=== PATIENT | female | born 2000 | race Caucasian/White ===

== ENCOUNTER 2019-02-23 11:36 | Inpatient (IN) | payer OTHER ==
--- NOTE | 2019-02-23 11:57 | ED ---
Psychiatric Complaint - HPI Summary HPI Summary: Pt is a 19 y/o F presenting to the ED with a chief psychiatric complaint. She states she has been having suicidal thoughts since the beginning of this past summer, and that she has recently been experiencing auditory and visual hallucinations. She states that she sees herself hurting other people, however she has never been violent and does not want to hurt others. She also hears voices speaking to her and sounds that are not there. She had a plan to hang herself this past summer, but became scared and did not follow through. She also notes a headache, back pain, and neck pain that has been persistent over the past three weeks, with associated unbalance. - History Of Current Complaint Chief Complaint: EDSuicidal Time Seen by Provider: 02/23/19 11:52 Accompanied By: alone Hx Obtained From: Patient Onset/Duration: Gradual Onset, Lasting Weeks, Still Present Timing: Weeks Severity Initially: Moderate Severity Currently: Moderate Character: Depressed, Anxious Aggravating Factor(s): Nothing Alleviating Factor(s): Nothing Associated Signs And Symptoms: Positive: Hallucinating Has Suicidal: Reports: Thoughts, With A Plan. Denies: Has Prior Attempt(s) Has Homicidal: Denies: Thoughts - Allergies/Home Medications Allergies/Adverse Reactions: Allergies Allergy/AdvReac Type Severity Reaction Status Date / Time No Known Allergies Allergy Verified 02/23/19 11:48 PMH/Surg Hx/FS Hx/Imm Hx Previously Healthy: Yes Endocrine/Hematology History: Denies: Hx Diabetes Cardiovascular History: Denies: Hx Hypertension Infectious Disease History: No Infectious Disease History: Denies: Traveled Outside the [place] in Last 30 Days - Family History Known Family History: Positive: Other - OCD and manic depression in family - Social History Occupation: Student Hx Substance Use: No Substance Use Type: Reports: None Hx Tobacco Use: No Smoking Status (MU): Never Smoked Tobacco Review of Systems Positive: Myalgia - neck/back pain Neurological: Other - off balance Positive: Headache Positive: Depressed, Other - SI w/ plan. auditory/visual hallucinations. All Other Systems Reviewed And Are Negative: Yes Physical Exam - Summary Physical Exam Summary: Constitutional: Well-developed, Well-nourished, Alert. (-) Distressed Skin: Warm, Dry HENT: Normocephalic; Atraumatic Eyes: Conjunctiva normal Neck: Musculoskeletal ROM normal neck. (-) JVD, (-) Stridor, (-) Tracheal deviation Cardio: Rhythm regular, rate normal, Heart sounds normal; Intact distal pulses; The pedal pulses are 2+ and symmetric. Radial pulses are 2+ and symmetric. (-) Murmur Pulmonary/Chest wall: Effort normal. (-) Respiratory distress, (-) Wheezes, (-) Rales Abd: Soft, (-) tenderness, (-) Distension, (-) Guarding, (-) Rebound Musculoskeletal: (-) Edema Lymph: (-) Cervical adenopathy Neuro: Alert, Oriented x3, ambulates w/ normal gait Psych: Mood and affect Normal Triage Information Reviewed: Yes Vital Signs On Initial Exam: Initial Vitals Temp Pulse Resp BP Pulse Ox 97.8 F 95 18 127/80 96 02/23/19 11:47 02/23/19 11:47 02/23/19 11:47 02/23/19 11:47 02/23/19 11:47 Vital Signs Reviewed: Yes Diagnostics - Vital Signs Vital Signs Temp Pulse Resp BP Pulse Ox 02/23/19 11:47 97.8 F 95 18 127/80 96 - Laboratory Result Diagrams: 02/23/19 12:16 02/23/19 12:16 Lab Statement: Any lab studies that have been ordered have been reviewed, and results considered in the medical decision making process. - CT Brain CT CT Interpretation Completed By: Radiologist Summary of CT Findings: No acute intracranial pathology. ED physician has reviewed this report. Course/Dx - Course Course Of Treatment: Patient is here with suicidal thoughts and hallucinations. Patient was medically cleared by myself. Patient seen by the psychiatry staff and was admitted to the [facility]. - Differential Dx/Clinical Impression Provider Diagnosis: Hallucinations, Suicidal thoughts Discharge ED - Sign-Out/Discharge Documenting (check all that apply): Patient Departure - Discharge Plan Condition: Stable Disposition: PSYCHIATRIC FACILITY-[facility] [place] - Billing Disposition and Condition Condition: STABLE Disposition: Psychiatric Facility [facility] [place] - Attestation Statements Document Initiated by Scribe: Yes Documenting Scribe: Romina Weaver Provider For Whom Scribe is Documenting (Include Credential): Elijah Hogan MD. Scribe Attestation: Romina Alexander, scribed for Elijah Hogan MD. on 02/23/19 at 1839. Scribe Documentation Reviewed: Yes Provider Attestation: The documentation as recorded by the scribe, Romina Weaver accurately reflects the service I personally performed and the decisions made by me, Elijah Hogan MD. Status of Scribe Document: Viewed
[2019-02-23 12:43] LABS: ABS Basophils 0.1 10^3/ul (0-0.2); ABS Eosinophils 0.1 10^3/ul (0-0.6); ABS Lymphocytes 1.5 10^3/ul (1.0-4.8); ABS Monocytes 0.4 10^3/ul (0-0.8); ABS Neutrophils 6.7 10^3/ul (1.5-7.7); Eosinophil % 1.2 %; Hematocrit 44 % (35-47); Hemoglobin 14.8 g/dL (12.0-16.0); Lymphocyte % 16.9 %; Mean Corpuscular HGB Conc 34 g/dL (31-36); Mean Corpuscular Hemoglobin 28 pg (27-31); Mean Corpuscular Volume 83 fL (80-97); Mean Platelet Volume 8.8 fL (7.4-10.4); Platelet Count 225 10^3/uL (150-450); Red Blood Count 5.25 10^6 /uL (3.70-4.87); Red Cell Distribution Width 14 % (10-15); White Blood Count 8.7 10^3/uL (3.5-10.8)
[2019-02-23 12:54] LABS: ALT 101 U/L (7-52); AST 40 U/L (13-39); Albumin 4.5 g/dL (3.2-5.2); Albumin/Globulin Ratio 1.4 (1-3); Alkaline Phosphatase 67 U/L (34-104); Anion Gap 7 mmol/L (2-11); BUN/Creatinine Ratio 13.4 (8-20); Blood Urea Nitrogen 11 mg/dL (6-24); CO2 Carbon Dioxide 26 mmol/L (22-32); Calcium 9.8 mg/dL (8.6-10.3); Chloride 105 mmol/L (101-111); EGFR African American 107.5 (>60); EGFR Non-African American 88.9 (>60); Globulin 3.2 g/dL (2-4); Glucose 107 mg/dL (70-100); Potassium 4.4 mmol/L (3.5-5.0); Sodium 138 mmol/L (135-145); Total Protein 7.7 g/dL (6.4-8.9)
[2019-02-23 12:59] LABS: HCG Pregnancy < 0.60 mIU/mL
[2019-02-23 13:16] LABS: TSH (Thyroid Stimulating Horm) 1.85 mcIU/mL (0.34-5.60)
[2019-02-23 13:20] LABS: Urine Benzodiazepine Screen None Detected (None Detect); Urine Opiates Screen None Detected (None Detect)
[2019-02-23 13:24] LABS: Urine Appearance Clear; Urine Bilirubin Negative (Negative); Urine Blood Negative (Negative); Urine Color Straw; Urine Glucose Negative (Negative); Urine Ketones Negative (Negative); Urine Nitrite Negative (Negative); Urine Protein Negative (Negative); Urine Specific Gravity 1.008 (1.010-1.030); Urine Urobilinogen Negative (Negative)
[2019-02-24] MEDS ORDERED: Acetaminophen TAB* 325 MG PO PRN (10:07)
[2019-02-24] MEDS ORDERED: Al Hydrox/Mg Hydrox/Simet LIQ* 30 ML UDC PO PRN (10:07)
--- NOTE | 2019-02-24 11:23 | HP ---
CONTINUATION ADDENDUM NOW INCLUDED ON THIS REPORT HISTORY AND PHYSICAL: DATE OF ADMISSION: 02/23/19 PROVIDER: Gosia Rios NP, in Psychiatry. SUPERVISING PHYSICIAN: Umang Thakkar MD * (DICTATED BY GOSIA RIOS NP ) JUSTIFICATION FOR ADMISSION: The patient is in need of 24-hour supervision and care secondary to suicidal ideation and command auditory hallucinations and visual hallucinations. CHIEF COMPLAINT: "If I hurt myself, nobody else will be hurt." HISTORY OF PRESENT ILLNESS: The patient is a 19-year-old partnered female with a history of depression, who arrives brought in by law enforcement from [facility] and is here on a voluntary status following going to [facility] and admitting that she is having auditory and visual hallucinations, ideas to self injure, and suicidal thoughts. CONTINUATION ADDENDUM: HISTORY OF PRESENT ILLNESS: She is having intrusive thoughts and voices that say she has already hurt people. They say she did things but she cannot find evidence. This started 4 months ago which coincided when her "baby sister" was born. She does distinguish between voices and thoughts. She states the thoughts are less loud in her head while the voices feel loud and present. She is having visual hallucinations that she is seeing everywhere. At this point, the hallucinations seem more obsessive than psychotic and the voices also seem more intrusive than psychotic. She does worry. She is physically tense. She has concentration difficulties which interfere with her school work. She worries that she is going to see these visions. She is having trouble sleeping. PAST PSYCHIATRIC HISTORY: She has no previous hospitalization. She did take 10 mg of Prozac but she said she was so depressed she did not go back to the doctor and she stopped the medication. She states that Prozac took her emotions away and she could not cry. PAST MEDICAL HISTORY: Is deferred for now. TRAUMA HISTORY: Includes bullying in middle school and high school at [employer]. FAMILY HISTORY: Her aunt Lyric went "insane." She ended up running out into the street naked and engaged in some self-harm. Her father has obsessive- compulsive disorder. SUBSTANCE ABUSE: Is denied. SOCIAL HISTORY: She is from [facility]. She lives in a dorm at [facility] [employer] [facility] [employer]. She did very well last semester. This semester, she is having a difficult time. She is majoring in [employer] art and design. She does not have a job at this time. She has not been in the . There are no legal problems. She stopped taking her control. REVIEW OF SYSTEMS: The patient reports feeling fatigued. She denies shortness of breath, heat or cold intolerance, chest pain or abdominal pain. She denies neurological symptoms. She denies fevers or changes in weight. PHYSICAL EXAMINATION GENERAL: Constitutional: Well developed, well nourished, and alert. VITAL SIGNS: On 02/24/19, at 0800, temperature was 97.9, pulse 108, respirations 16, O2 sat on room air 99%, blood pressure 116/74. HEENT: Normocephalic, atraumatic. Eyes: Conjunctivae normal. NECK: Range of motion normal. Negative JVD. Negative stridor, negative tracheal deviation. PULMONARY: Chest wall: Effort normal. Negative respiratory distress. Negative wheezes, negative rales. CARDIO: Regular rhythm. Rate normal. Heart sounds normal. Intact distal pulses. Pedal pulses are 2+ and symmetric. Radial pulses are 2+ and symmetric. Negative murmur. ABDOMEN: Soft. Negative tenderness. Negative distention. Negative guarding. Negative rebound. MUSCULOSKELETAL: Negative edema. LYMPHS: Negative cervical adenopathy. NEUROLOGIC: Alert and oriented x4, ambulates with a normal gait. SKIN: Warm and dry. DIAGNOSTIC STUDIES/LAB DATA: Most data are within normal limits. Exceptions include RBC high at 5.25, glucose high at 107. AST high at 40, ALT high at 101. Urine specific gravity is low at 1.008. Toxicology screen is negative for substances of abuse. MENTAL STATUS EXAM: This is a 5-foot 4-inch, 140-pound white woman who has shoulder-length brown hair. Her grooming is adequate. She is quiet and still when speaking. Her interactions are calm and cooperative. Her speech is of normal rate, tone, and volume. She is dysthymic. She has a full range of affect. Her thought processes appeared to be normal. Her thought content is free of delusions. She is suicidal. She is not homicidal, although she does have images of being homicidal and thought that she has already killed people. She has no intent, however. She is having auditory and visual hallucinations, which may be more accurately described as intrusive thoughts. The visual hallucinations are of her hanging herself or her grandfather's body in front of her. Auditory hallucinations are trying to make her think she is guilty of committing terrible acts that the Police will find out about. Her insight is good. Her judgment is fair. She is alert and oriented x4. DIAGNOSES: Obsessive-compulsive disorder, rule out psychotic disorder. IMPRESSION: Josefa is a 19-year-old white woman who comes to the hospital with suicidal ideation, intrusive thoughts, and hallucinations regarding crimes and appalling images that affect her emotionally. PLAN: The patient is admitted to the adult behavioral unit and placed on q.15- minute checks for her own safety. She is encouraged to participate in supportive milieu, individual and group therapies. Estimated length of stay is 5 to 7 days. We will titrate medications to efficacy and monitor for mood and thought content. Discharge planning will include family involvement and outpatient providers. GOSIA RIOS NP [id number]/CPS #: [id number]/CPS #: [id number] KATHY
[2019-02-24] MEDS: Ibuprofen TAB* 600 MG PO PRN (16:38)
[2019-02-24] MEDS: ARIPiprazole TAB* 5 MG PO SCH (20:28)
[2019-02-24] MEDS: Escitalopram * 10 MG TAB PO SCH (20:36)
[2019-02-25] MEDS: Ibuprofen TAB* 600 MG PO PRN ×3 (07:56→22:02)
--- NOTE | 2019-02-25 09:49 | HP ---
HISTORY AND PHYSICAL: ADDENDUM: HISTORY OF PRESENT ILLNESS: She is having intrusive thoughts and voices that say she has already hurt people. They say she did things but she cannot find evidence. This started 4 months ago which coincided when her "baby sister" was born. She does negative things in between voices and thoughts. She states the thoughts are less loud in her head while the voices feel loud and present. She is having visual hallucinations that she is seeing everywhere. At this point, the hallucinations seem more obsessive than psychotic and the voices also seem more intrusive than psychotic. She does seem to worry. She is physically tense. She has concentration difficulties which interfere with her school work. She worries that she is going to see these visions. She is having trouble sleeping. PAST PSYCHIATRIC HISTORY: She has no previous hospitalization. She did take 10 mg of Prozac but she said she was so depressed she did not go back to the doctor. She states that Prozac took her emotions away and she could not cry. PAST MEDICAL HISTORY: Is deferred for now. TRAUMA HISTORY: Includes bullying in middle school and high school at [employer]. FAMILY HISTORY: Her aunt Lyric went "insane." She ended up running out into the street naked and engaged in some self-harm. Her father has obsessive- compulsive disorder. SUBSTANCE ABUSE: Is denied. SOCIAL HISTORY: She is from [facility]. She lives in dorm at [employer]. She did very well last semester. This semester, she is having a difficult time. She is majoring in [employer] art and design. She does not have a job at this time. She has not been in the . There are no legal problems. She stopped taking her control. REVIEW OF SYSTEMS: The patient reports feeling fatigued. She denies shortness of breath, heat or cold intolerance, chest pain or abdominal pain. She denies neurological symptoms. She denies fevers or changes in weight. PHYSICAL EXAMINATION GENERAL: Constitutional: Well developed, well nourished, and alert. VITAL SIGNS: On 02/24/19, at 0800, temperature was 97.9, pulse 108, respirations 16, O2 sat on room air 99%, blood pressure 116/74. HEENT: Normocephalic, atraumatic. Eyes: Conjunctivae normal. NECK: Range of motion normal. Negative JVD. Negative stridor, negative tracheal deviation. PULMONARY: Chest wall: Effort normal. Negative respiratory distress. Negative wheezes, negative rales. CARDIO: Regular rhythm. Rate normal. Heart sounds normal. Intact distal pulses. Pedal pulses are 2+ and symmetric. Radial pulses are 2+ and symmetric. Negative murmur. ABDOMEN: Soft. Negative tenderness. Negative distention. Negative guarding. Negative rebound. MUSCULOSKELETAL: Negative edema. LYMPHS: Negative cervical adenopathy. NEUROLOGIC: Alert and oriented x4, ambulates with a normal gait. SKIN: Warm and dry. DIAGNOSTIC STUDIES/LAB DATA: Most data are within normal limits. Exceptions include RBC high at 5.25, glucose high at 107. AST high at 40, ALT high at 101. Urine specific gravity is low at 1.008. Toxicology screen is negative for substances of abuse. MENTAL STATUS EXAM: This is a 5-foot 4-inch, 140-pound white woman who has shoulder-length brown hair. Her grooming is adequate. She is quiet and still when speaking. Her interactions are calm and cooperative. Her speech is of normal rate, tone, and volume. She is dysthymic. She has a full range of affect. Her thought processes appeared to be normal. Her thought content is free of delusions. She is suicidal. She is not homicidal, although she does have images of being homicidal and thought that she has already killed people. She has no intent, however. She is having auditory and visual hallucinations, which may be more accurately described as intrusive thoughts. The visual hallucinations are of her hanging herself or her grandfather's body in front of her. Auditory hallucinations are trying to make her think she is guilty of committing terrible acts that the Police will find out about. Her insight is good. Her judgment is fair. She is alert and oriented x4. DIAGNOSES: Obsessive-compulsive disorder, rule out psychotic disorder. IMPRESSION: Josefa is a 19-year-old white woman who comes to the hospital with suicidal ideation, intrusive thoughts, and hallucinations regarding crimes and appalling images that affect her emotionally. PLAN: The patient is admitted to the adult behavioral unit and placed on q.15- minute checks for her own safety. She is encouraged to participate in supportive milieu, individual and group therapies. Estimated length of stay is 5 to 7 days. We will titrate medications to efficacy and monitor for mood and thought content. Discharge planning will include family involvement and outpatient providers. ASHLEY ROSE NP [id number]/CPS #: [id number] MTDScott
[2019-02-25] MEDS: Vitamin THERAPEUTIC TAB PO SCH (14:08)
--- NOTE | 2019-02-25 18:50 | PN ---
Subjective - Subjective Date of Service: 02/25/19 Service Type: 95554 Hosp care 25 min moderate complexity Subjective: Josefa appears sad and sleepy when we meet. She discusses that there is a cycle to her anxiety and depression: she has "bad thoughts" that lead to a headache, which leads to memory lapse, which leads to blacking out, which leads to bad thoughts of things like murder and rape. We discuss breaking this cycle by doing her own personal work as well as taking medication. She agrees to check in with reality more often as well as her body to determine what is happening for her own self rather than what might be happening to others. Objective - General Observations Appearance: Disheveled Appears Stated Age: Yes Stature: WNL Posture: WNL Eye Contact: Average Behavior/Activity: WNL - Interaction Observations Attitude Towards Examiner: Cooperative, Anxious, Confused Stated Mood: Dysphoric, Silly Affect: Blunted Speech Pattern/Tone: Clear Thought Process: Coherent Perception: Illusions, Depersonalization, Derealization Thought Content: Preoccupation/Ruminations, Obsessional, Paranoid Thought Process: Lethality: Passive Wish Hallucination Type: Auditory, Visual - Cognitive Function Orientation: A&O x 4 Level of Consciousness: Awake, Alert, Appropriate Cognition: Impaired Memory, Impaired Attention/Concentration Estimated Intelligence: Normal Insight: WNL Judgment Within Normal Limits: No Ability to Make Reasonable Decisions: Moderately Impaired - Medication Compliance Cooperative with Inpatient Medication Regimen: Yes - Group Participation Participates in Group Activities: Yes Assessment - Assessment Merits Inpatient Hospitalization: For Immediate Safety Clinical Impression: Josefa is a 19 year old woman who is in school at [employer] who comes to the hospital with obsessive thoughts of rape and murder as well as being convinced that she is responsible for these thoughts and that they are real events. Plan - Plan Treatment Plan: Name: JOSEFA GARCIA Birthdate: 2000 [id number] Start Lexapro 10 mg. Start Abilify 5 mg. Work to improve understanding of MMPI results. Work to improve socialization and ability to reflect accurate assessments of her own behavior and thoughts and feelings. Continued Medication Management: Start Medication Medications: Current Medications Acetaminophen (Tylenol Tab*) 650 mg PO Q4H PRN PRN Reason: PAIN - MILD Last Admin: 02/24/19 20:28 Dose: 650 mg Al Hydrox/Mg Hydrox/Simethicone (Maalox Plus*) 30 ml PO Q4H PRN PRN Reason: NAUSEA Aripiprazole (Abilify Tab*) 5 mg PO BEDTIME GRACIELA Last Admin: 02/24/19 20:28 Dose: 5 mg Escitalopram Oxalate (Lexapro *) 10 mg PO BEDTIME GRACIELA Last Admin: 02/24/19 20:36 Dose: 10 mg Ibuprofen (Motrin Tab*) 600 mg PO Q6H PRN PRN Reason: PAIN - MILD Last Admin: 02/25/19 14:09 Dose: 600 mg Multivitamins (Theragran Tab*) 1 tab PO DAILY GRACIELA Last Admin: 02/25/19 14:08 Dose: Not Given
[2019-02-25] MEDS: Escitalopram * 10 MG TAB PO SCH (20:37)
[2019-02-25] MEDS: ARIPiprazole TAB* 5 MG PO SCH (20:37)
[2019-02-26] MEDS: Vitamin THERAPEUTIC TAB PO SCH (08:40)
[2019-02-26] MEDS: Ibuprofen TAB* 600 MG PO PRN (16:09)
--- NOTE | 2019-02-26 16:53 | PN ---
Subjective - Subjective Date of Service: 02/26/19 Service Type: [id number] Hosp care 25 min moderate complexity Subjective: Josefa states that she is seeing about 50% of the visions she used to see and the auditory symptoms are more tolerable. She attributes the improvement to medication. We discuss that it is also due to reduced anxiety. We discussed intrusive thoughts vs hallucinations. She endorses anxiety and worry. She is very concerned about her MMPI results as she believes they are "bad results." We discussed the implication of having extreme scores and how she might see things in a very extreme fashion rather than as they might be otherwise interpreted. We talked about obsessive compulsive disorder. Objective - General Observations Appearance: Disheveled Appears Stated Age: Yes Stature: WNL Posture: Slumped Eye Contact: Average Behavior/Activity: WNL - Interaction Observations Attitude Towards Examiner: Cooperative, Anxious, Defensive Stated Mood: Dysphoric Affect: Full Speech Pattern/Tone: Clear Thought Process: Coherent, Tangential Perception: Derealization Thought Content: Obsessional Thought Process: Lethality: Passive Wish Hallucination Type: Auditory, Visual Delusion Type: None - Cognitive Function Orientation: A&O x 4 Level of Consciousness: Awake, Alert, Appropriate Cognition: Impaired Fund of Knowledge Estimated Intelligence: Normal Insight: WNL Judgment Within Normal Limits: No Ability to Make Reasonable Decisions: Mildly Impaired - Medication Compliance Cooperative with Inpatient Medication Regimen: Yes - Group Participation Participates in Group Activities: Yes Assessment - Assessment Merits Inpatient Hospitalization: For Immediate Safety Clinical Impression: Josefa is a 19 year old woman who is in school at [employer] who comes to the hospital with obsessive thoughts of rape and murder as well as being convinced that she is responsible for these thoughts and that they are real events. Plan - Plan Treatment Plan: Name: JOSEFA GARCIA Birthdate: 2000 [id number] Start Lexapro 10 mg. Start Abilify 5 mg. Work to improve understanding of MMPI results. Work to improve socialization and ability to reflect accurate assessments of her own behavior and thoughts and feelings. 02/26/19 Discuss obsessive thoughts and talk about work to counteract them. Continue with medication. Plan to increase Lexapro on Friday. Medications: Current Medications Acetaminophen (Tylenol Tab*) 650 mg PO Q4H PRN PRN Reason: PAIN - MILD Last Admin: 02/24/19 20:28 Dose: 650 mg Al Hydrox/Mg Hydrox/Simethicone (Maalox Plus*) 30 ml PO Q4H PRN PRN Reason: NAUSEA Last Admin: 02/25/19 22:03 Dose: 30 ml Aripiprazole (Abilify Tab*) 5 mg PO BEDTIME GRACIELA Last Admin: 02/25/19 20:37 Dose: 5 mg Escitalopram Oxalate (Lexapro *) 10 mg PO BEDTIME GRACIELA Last Admin: 02/25/19 20:37 Dose: 10 mg Ibuprofen (Motrin Tab*) 600 mg PO Q6H PRN PRN Reason: PAIN - MILD Last Admin: 02/26/19 16:09 Dose: 600 mg Multivitamins (Theragran Tab*) 1 tab PO DAILY [facility] Last Admin: 02/26/19 08:40 Dose: Not Given - Discharge Plan Discharge Plan: Outpatient Follow Up
[2019-02-26] MEDS: ARIPiprazole TAB* 5 MG PO SCH (20:06)
[2019-02-26] MEDS: Escitalopram * 10 MG TAB PO SCH (20:06)
[2019-02-27] MEDS: Vitamin THERAPEUTIC TAB PO SCH (10:05)
[2019-02-27] MEDS: Escitalopram * 10 MG TAB PO SCH (20:31)
[2019-02-27] MEDS: ARIPiprazole TAB* 5 MG PO SCH (20:31)
[2019-02-28] MEDS: Vitamin THERAPEUTIC TAB PO SCH (08:42)
--- NOTE | 2019-02-28 16:04 | PN ---
Subjective - Subjective Date of Service: 02/28/19 Subjective: Josefa endorses less intrusive thoughts and better ability to ignore them, improved, mood, sleep and anxiety. She denies SI or urges for sib and she contracts for safety. She denies side effects from her prescribed meds. Per staff, she has been adherent to unit's routines. Objective - General Observations Appearance: Well Groomed Appears Stated Age: Yes Stature: WNL Posture: WNL Eye Contact: Average Behavior/Activity: WNL - Interaction Observations Attitude Towards Examiner: Cooperative Stated Mood: Euthymic Affect: Restricted Speech Pattern/Tone: Clear, Appropriate Thought Process: Coherent Perception: WNL Thought Content: Obsessional Delusion Type: None - Cognitive Function Orientation: A&O x 4 Level of Consciousness: Awake, Alert Cognition: WNL Judgment Within Normal Limits: No - Medication Compliance Cooperative with Inpatient Medication Regimen: Yes - Group Participation Participates in Group Activities: Yes Assessment - Assessment Merits Inpatient Hospitalization: For Ongoing Evaluation, Consolidate Improvements, For Discharge Planning Clinical Impression: Josefa is a 19 year old woman who is in school at [employer] who comes to the hospital with obsessive thoughts of rape and murder as well as being convinced that she is responsible for these thoughts and that they are real events. She is stabilizing in this structured setting. Plan - Plan Treatment Plan: Name: JOSEFA GARCIA Birthdate: 2000 [id number] Start Lexapro 10 mg. Start Abilify 5 mg. Work to improve understanding of MMPI results. Work to improve socialization and ability to reflect accurate assessments of her own behavior and thoughts and feelings. 02/26/19 Discuss obsessive thoughts and talk about work to counteract them. Continue with medication. Plan to increase Lexapro on Friday. Medications: Current Medications Acetaminophen (Tylenol Tab*) 650 mg PO Q4H PRN PRN Reason: PAIN - MILD Last Admin: 02/24/19 20:28 Dose: 650 mg Al Hydrox/Mg Hydrox/Simethicone (Maalox Plus*) 30 ml PO Q4H PRN PRN Reason: NAUSEA Last Admin: 02/25/19 22:03 Dose: 30 ml Aripiprazole (Abilify Tab*) 5 mg PO BEDTIME [facility] Last Admin: 02/27/19 20:31 Dose: 5 mg Escitalopram Oxalate (Lexapro *) 10 mg PO BEDTIME [facility] Last Admin: 02/27/19 20:31 Dose: 10 mg Ibuprofen (Motrin Tab*) 600 mg PO Q6H PRN PRN Reason: PAIN - MILD Last Admin: 02/26/19 16:09 Dose: 600 mg Multivitamins (Theragran Tab*) 1 tab PO DAILY [facility] Last Admin: 02/28/19 08:42 Dose: 1 tab - Discharge Plan Discharge Plan: Outpatient Follow Up Outpatient Program: [facility]
[2019-02-28] MEDS: ARIPiprazole TAB* 5 MG PO SCH (20:21)
[2019-02-28] MEDS: Escitalopram * 10 MG TAB PO SCH (20:21)
[2019-03-01] MEDS: Vitamin THERAPEUTIC TAB PO SCH (08:23)
--- NOTE | 2019-03-01 15:49 | PN ---
Subjective - Subjective Date of Service: 03/01/19 Service Type: 99164 Hosp care 25 min moderate complexity Subjective: Josefa is doing well and appreciates reassurance that she will get better. She has questions regarding her diagnosis (OCD) and her treatment. She requests her Lexapro or Abilify be increased. I had planned on increasing the Lexapro, so that will happen at next dose (from 10 to 20 mg). She states her symptoms are still present, but they are decreasing in severity as well as intensity. Objective - General Observations Appearance: Disheveled Appears Stated Age: Yes Stature: WNL Posture: WNL Eye Contact: Average Behavior/Activity: WNL - Interaction Observations Attitude Towards Examiner: Cooperative Stated Mood: Euthymic, Anxious Affect: Full Speech Pattern/Tone: Clear Thought Process: Coherent Perception: WNL Thought Content: Obsessional, Self-Deprecatory Hallucination Type: None Delusion Type: None - Cognitive Function Orientation: A&O x 4 Level of Consciousness: Awake, Alert, Appropriate Cognition: WNL Estimated Intelligence: Normal Insight: WNL Judgment Within Normal Limits: Yes - Medication Compliance Cooperative with Inpatient Medication Regimen: Yes - Group Participation Participates in Group Activities: Yes Assessment - Assessment Merits Inpatient Hospitalization: For Immediate Safety, For Discharge Planning Inpatient DSM-V Dx: F42.9 Clinical Impression: Josefa is a 19 year old woman who is in school at [employer] who comes to the hospital with obsessive thoughts of rape and murder as well as being convinced that she is responsible for these thoughts and that they are real events. She is stabilizing in this structured setting. Plan - Plan Treatment Plan: Name: JOSEFA GARCIA Birthdate: 2000 [id number] Start Lexapro 10 mg. Start Abilify 5 mg. Work to improve understanding of MMPI results. Work to improve socialization and ability to reflect accurate assessments of her own behavior and thoughts and feelings. 02/26/19 Discuss obsessive thoughts and talk about work to counteract them. Continue with medication. Plan to increase Lexapro on Friday. 03/01/19 Increase Lexapro to 20 mg. Plan for discharge tomorrow. Continued Medication Management: Different Medication Medications: Current Medications Acetaminophen (Tylenol Tab*) 650 mg PO Q4H PRN PRN Reason: PAIN - MILD Last Admin: 02/24/19 20:28 Dose: 650 mg Al Hydrox/Mg Hydrox/Simethicone (Maalox Plus*) 30 ml PO Q4H PRN PRN Reason: NAUSEA Last Admin: 02/25/19 22:03 Dose: 30 ml Aripiprazole (Abilify Tab*) 5 mg PO BEDTIME [facility] Last Admin: 02/28/19 20:21 Dose: 5 mg Escitalopram Oxalate (Lexapro *) 20 mg PO BEDTIME [facility]ACI[facility]A Ibuprofen (Motrin Tab*) 600 mg PO Q6H PRN PRN Reason: PAIN - MILD Last Admin: 02/26/19 16:09 Dose: 600 mg Multivitamins (Theragran Tab*) 1 tab PO DAILY [facility] Last Admin: 03/01/19 08:23 Dose: 1 tab - Discharge Plan Discharge Plan: Outpatient Follow Up
[2019-03-01] MEDS: ARIPiprazole TAB* 5 MG PO SCH (20:08)
[2019-03-01] MEDS ORDERED: Escitalopram * 20 MG TABLET PO SCH (21:00)
[2019-03-02] MEDS: Vitamin THERAPEUTIC TAB PO SCH (09:07)
[2019-03-02 09:34] VITALS: BP 102/73
--- NOTE | 2019-03-02 22:43 | DS ---
DISCHARGE SUMMARY: DATE OF ADMISSION: 02/23/19 DATE OF DISCHARGE: 03/02/19 PROVIDER: Gosia Rios NP, Psychiatry. SUPERVISING PHYSICIAN: Dr. Umang Thakkar.* (DICTATED BY GOSIA RIOS NP ) DIAGNOSES: 1. Major depressive disorder. 2. Obsessive compulsive disorder. 3. Psychosis, not otherwise specified. CONDITION AT THE TIME OF DISCHARGE: Improved, psychiatrically cleared, stable. Josefa participated in groups and was social with peers. Her boyfriend is agreeable to discharge, as is Josefa. She has done well here psychiatrically, tolerating new meds including Lexapro and Abilify well. She will be attending [facility]. MENTAL STATUS EXAM: At the time of discharge, Josefa is calm, cooperative, makes good eye contact. She is alert and oriented x4. Her grooming is good. Her speech pace is normal. Her thought processes are logical. She is not psychotic or delusional. She denies AH, VH, SI, and HI. Insight and judgment are good, willing to follow up, and urged to see her therapist. DISCHARGE INSTRUCTIONS TO THE PATIENT: A. Medications: 1. Aripiprazole 5 mg at bedtime, dispensed 30. 2. Escitalopram 20 mg at bedtime, dispensed 30. She may split these and take 10 mg twice a day. 3. Camrese Lo tablet, 1 tablet daily. B. Diet is regular. C. Activities as tolerated. She is a nonsmoker. There are no studies pending at the time of discharge. D. Followup Care: She is going [facility][1] and meeting with Valeria Ascencio on 03/04/19 at 11 a.m. She also is encouraged to make an appointment with Dr. Ann Chowdary in [place] to follow up with physical exam as necessary. E. Disposition: She is returning back to the dorm at [facility]. F. Substance abuse followup is not indicated. HOSPITAL COURSE: Part A. Chief complaint: "If I hurt myself, nobody else will be hurt." The patient is a 19-year-old partnered female with a history of depression, who arrives, brought in by law enforcement, from [facility] and is here on a voluntary status following going to [facility][1] and admitting she is having auditory and visual hallucinations, ideas to self-injure, and suicidal thoughts. She is having intrusive thoughts and voices that say she has already hurt people : They say she did things, but she cannot find evidence. This started 4 months ago, which coincided with when her "baby sister" was born. She does distinguish between voices and thoughts. She states the thoughts are less loud in her head while the voices feel loud and present. She is having visual hallucinations that she is seeing everywhere. At this point, the hallucinations seem more obsessive than psychotic, and the voices seem more intrusive than psychotic. She does worry a lot. She is physically tense. She has concentration difficulties, which interfere with her school work. She worries that she is going to see these visions. She is having trouble sleeping. Part B: Psychiatric treatment was rendered. The patient was admitted to the adult behavioral unit and placed on 15-minute checks for safety. She did advance to 30- minute checks and staff-pass privileges. Josefa did well on the unit and went to groups. She interacted with peers very well and states she made a lot of friends here. She tolerated the addition of Lexapro 10 as well as Abilify 5. Staff worked with her to understand her MMPI results, which indicated that she tended to over endorse her stressors. We worked with her to improve socialization and her ability to reflect accurate assessments of her own behaviors, thoughts, and feelings. On 02/26/19, our focus was to discuss obsessive thoughts and talk about how to work to counteract them. We continued the same medication and planned to increase Lexapro on Friday. On 03/01/19, which was Friday, we did increase Lexapro to 20 mg and planned for discharge on 03/02/19, the day on which she was indeed discharged. We did not meet with her family, but her boyfriend was happy to come and pick her up. No consults were entered for her, but nevertheless, without those interventions, she is much improved. Her sleep has improved. Her interest has increased. She has more energy and that is evident. She is not having suicidal ideation. The psychotic type thoughts and voices have diminished significantly. She is future oriented and feels as though she can go back to school. GOSIA RIOS, MULTIPLE SCLEROSIS NURSE [id number]/[facility] #: [id number] [facility]USScott
== END 2019-03-02 11:00 | disposition home or self-care (01) | DRG 755 ==
LOC: ED 11:36 → BSU 16:01
PROVIDERS: ADMIT Psychiatry & Neurology Psychiatry; ATTEND Psychiatry & Neurology Psychiatry
DX: F42.9 Obsessive-compulsive disorder, unspecified (principal); R45.851 Suicidal ideations; F32.9 Major depressive disorder, single episode, unspecified; F29 Unspecified psychosis not due to a substance or known physiological condition; F41.9 Anxiety disorder, unspecified; Z81.8 Family history of other mental and behavioral disorders
CPT/HCPCS: 36415; 70450; 80053; 80307; 81003; 84443; 84702; 85025; 99222; 99231; 99232; 99238; 99284; A9270-GY

== ENCOUNTER 2020-07-21 08:24 | Inpatient (IN) ==
[2020-07-21 09:20] LABS: ABS Basophils 0.1 10^3/ul (0-0.2); ABS Eosinophils 0.3 10^3/ul (0-0.6); ABS Lymphocytes 3.3 10^3/ul (1.0-4.8); ABS Monocytes 0.7 10^3/ul (0-0.8); ABS Neutrophils 6.7 10^3/ul (1.5-7.7); Eosinophil % 2.5 %; Hematocrit 45 % (35-47); Hemoglobin 14.9 g/dL (12.0-16.0); Lymphocyte % 30.1 %; Mean Corpuscular HGB Conc 33 g/dL (31-36); Mean Corpuscular Hemoglobin 27 pg (27-31); Mean Corpuscular Volume 81 fL (80-97); Mean Platelet Volume 8.7 fL (7.4-10.4); Platelet Count 253 10^3/uL (150-450); Red Blood Count 5.53 10^6 /uL (3.70-4.87); Red Cell Distribution Width 14 % (10-15)
[2020-07-21 09:39] LABS: Urine Appearance Cloudy; Urine Bilirubin Negative (Negative); Urine Blood Negative (Negative); Urine Color Yellow; Urine Glucose Negative (Negative); Urine Ketones Negative (Negative); Urine Nitrite Negative (Negative); Urine Protein Negative (Negative); Urine Specific Gravity 1.017 (1.010-1.030); Urine Urobilinogen Negative (Negative)
[2020-07-21 09:41] LABS: ALT 28 U/L (7-52); AST 17 U/L (13-39); Albumin 4.3 g/dL (3.2-5.2); Albumin/Globulin Ratio 1.2 (1-3); Alkaline Phosphatase 81 U/L (34-104); Anion Gap 9 mmol/L (2-11); BUN/Creatinine Ratio 14.1 (8-20); Blood Urea Nitrogen 12 mg/dL (6-24); CO2 Carbon Dioxide 25 mmol/L (22-32); Calcium 9.6 mg/dL (8.6-10.3); Chloride 105 mmol/L (101-111); EGFR African American 102.2 (>60); EGFR Non-African American 84.4 (>60); Globulin 3.7 g/dL (2-4); Glucose 102 mg/dL (70-100); Potassium 3.7 mmol/L (3.5-5.0); Sodium 139 mmol/L (135-145)
[2020-07-21 09:43] LABS: Urine Benzodiazepine Screen None Detected (None Detect); Urine Cannabinoids Screen None Detected (None Detect); Urine Opiates Screen None Detected (None Detect)
[2020-07-21 10:11] LABS: Acetaminophen < 15 mcg/mL; Alcohol, S < 10 mg/dL (<10); Salicylate < 2.50 mg/dL (<30)
[2020-07-21] MEDS ORDERED: Al Hydrox/Mg Hydrox/Simet LIQ 30 ML UDC PO PRN (10:12)
[2020-07-21 10:26] LABS: TSH Ultra Thyroid Stim Horm 2.78 mcIU/mL (0.34-5.60)
[2020-07-21 12:38] LABS: HCG Pregnancy < 0.60 mIU/mL
[2020-07-22] MEDS: Vitamin THERAPEUTIC TAB PO SCH (09:01)
[2020-07-22 10:16] LABS: HDL Cholesterol 38.2 mg/dL
[2020-07-22] MEDS: CMCS:ClomiPRAMINE 25 mg TAB (NF) PO SCH (12:02)
[2020-07-23] MEDS: Vitamin THERAPEUTIC TAB PO SCH (08:04)
[2020-07-23] MEDS: CMCS:ClomiPRAMINE 25 mg TAB (NF) PO SCH (08:04)
[2020-07-24] MEDS: Vitamin THERAPEUTIC TAB PO SCH (08:00)
[2020-07-24] MEDS: CMCS:ClomiPRAMINE 25 mg TAB (NF) PO SCH (08:00)
[2020-07-25] MEDS: Vitamin THERAPEUTIC TAB PO SCH (08:50)
[2020-07-25] MEDS: CMCS:ClomiPRAMINE 25 mg TAB (NF) PO SCH (08:50)
[2020-07-26] MEDS: CMCS:ClomiPRAMINE 25 mg TAB (NF) PO SCH (08:03)
[2020-07-26] MEDS: Vitamin THERAPEUTIC TAB PO SCH (08:03)
[2020-07-27] MEDS: Vitamin THERAPEUTIC TAB PO SCH (08:24)
[2020-07-27] MEDS: CMCS:ClomiPRAMINE 25 mg TAB (NF) PO SCH (08:24)
[2020-07-27 09:43] VITALS: BP 125/73
== END 2020-07-27 11:30 | disposition home or self-care (01) | DRG 755 ==
LOC: ED 08:24 → BSU 15:45
PROVIDERS: ADMIT Psychiatry & Neurology Psychiatry; ATTEND Psychiatry & Neurology Psychiatry